=== PATIENT | female | born 1935 | race Caucasian/White ===

== ENCOUNTER → 2017-02-02 | Outpatient (CLI) | payer MEDICARE, OTHER ==
[~2017-02-02] MED LIST: AMLO2.5T PO; ATEN25TA PO; IOHEXOL 240 MG/ML 50ML VIAL. PO ONE; IOHEXOL 300 MG/ML 100ML VIAL. IV ONE; LEVO25TA4 PO; OMEP20TA63 PO
--- NOTE | 2017-02-02 12:17 | KCIC ---
PROCEDURE CT of the abdomen and pelvis with contrast HISTORY Generalized abdominal pain. History of aneurysm. History of diverticulitis. TECHNIQUE Standard imaging after intravenous and oral contrast. COMPARISON FINDINGS Mild linear markings in the anterior right lung base compatible with scarring or mild atelectasis. Liver unremarkable. Spleen unremarkable. Pancreas unremarkable. No evidence of adrenal mass. Low-density lesion at the upper pole the left kidney measures water density, compatible with a cyst. There is a right extrarenal pelvis and a smaller left extrarenal pelvis. Gallbladder not visualized. Aorta is mildly calcified and tortuous without evidence of aneurysmal dilatation. No significant lymph node enlargement. Large hiatal hernia. This is partially visualized. No evidence of bowel obstruction. There is colonic diverticulosis without evidence of pericolonic inflammatory type changes. Unopacified urinary bladder is grossly unremarkable Uterine calcifications, likely due to fibroids. No evidence of ascites. Degenerative spondylosis of the visualized spine. There is at least mild spinal and neural foraminal stenosis at the lower lumbosacral levels. Arterial vascular calcifications are seen. There is a more focal ring-like calcification at the left splenic artery may represent a small calcified aneurysm, measuring 12 millimeters. IMPRESSION 1. Large hiatal hernia. 2. Left renal cyst. 3. 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 Electronically signed by: William Urban MD (Feb 02, 2017 12:15:48)
--- NOTE | 2017-02-02 12:22 | KCIC ---
PROCEDURE Bone density. HISTORY Osteoarthritis, osteoporosis, postmenopausal female. COMPARISON None. FINDINGS Dual photon densitometry of the lumbar spine and left proximal femur is performed. Bone mineral density values are measured in grams per cm2. Lumbar spine, L1-L4, total bone mineral density 1.142, T-score 0.9, Z-score 3.5. Left total femur bone mineral density 0.676, T-score -2.2, Z-score -0.2. World Health Organization criteria for bone mineral density interpretation classify patient's as normal (T-score at or above -1.0), osteopenic (T-score between -1 and -2.5), or osteoporotic (T-score at or below -2.5). IMPRESSION Normal bone mineral density of the lumbar spine and osteopenia of the left femur. Electronically signed by: Andrea Burk MD (Feb 02, 2017 12:20:56)
== END | disposition home or self-care (01) ==
LOC: KCIC CT 10:24
PROVIDERS: ATTEND Internal Medicine Cardiovascular Disease
DX: K44.9 Diaphragmatic hernia without obstruction or gangrene (principal); N28.1 Cyst of kidney, acquired; Z78.0 Asymptomatic menopausal state; M19.90 Unspecified osteoarthritis, unspecified site; M85.88 Other specified disorders of bone density and structure, other site; M81.0 Age-related osteoporosis without current pathological fracture
CPT/HCPCS: 74177; 77080; 82565; Q9966; Q9967

== ENCOUNTER 2017-10-23 15:20 | Emergency (ER) | payer MEDICARE, OTHER ==
[2017-10-23 16:53] LABS: BILIRUBIN,URINE NEGATIVE (NEG); CLARITY,URINE CLEAR; COLOR,URINE YELLOW; GLUCOSE,URINE NEGATIVE (NEG); NITRITE,URINE NEGATIVE (NEG); PROTEIN,URINE NEGATIVE (NEG-TRACE); UROBILINOGEN,URINE 0.2 mg/dL (0.2 mg/dL)
[2017-10-23 16:59] LABS: ADD MAN DIFF? NO
[2017-10-23 17:03] LABS: BASO # 0.1 x10^3/uL (0.0-0.2); BASO % 1 % (0-3); EOS % 0 % (0-3); HEMATOCRIT 42.1 % (36.0-47.0); HEMOGLOBIN 13.9 g/dL (12.0-15.5); LYMPH # 1.1 x10^3/uL (1.0-4.8); LYMPH % 12 % (24-48); MEAN CORPUSCULAR HEMOGLOBIN 31 pg (25-35); MEAN CORPUSCULAR HGB CONC 33 g/dL (31-37); MEAN CORPUSCULAR VOLUME 94 fL (79-100); MONO # 0.3 x10^3/uL (0.0-1.1); MONO % 3 % (0-9); NEUT # 7.9 x10^3uL (1.8-7.7); NEUT % 84 % (31-73); PLATELET COUNT 277 x10^3/uL (140-400); RED BLOOD COUNT 4.47 x10^6/uL (3.50-5.40); RED CELL DISTRIBUTION WIDTH 13.1 % (11.5-14.5); WHITE BLOOD COUNT 9.4 x10^3/uL (4.0-11.0)
[2017-10-23 17:12] LABS: BACTERIA,URINE 0 /HPF (0-FEW); RBC,URINE 0 /HPF (0-2); SQUAMOUS EPITHELIAL CELL,UR OCC /LPF; WBC,URINE 0 /HPF (0-4)
[2017-10-23 17:33] LABS: ANION GAP 12 (6-14); BLOOD UREA NITROGEN 16 mg/dL (7-20); BUN/CREATININE RATIO 16 (6-20); CALCIUM 9.4 mg/dL (8.5-10.1); CARBON DIOXIDE 28 mmol/L (21-32); CHLORIDE 104 mmol/L (98-107); GFR 53.3; GLUCOSE 125 mg/dL (70-99); POTASSIUM 3.5 mmol/L (3.5-5.1); SODIUM 144 mmol/L (136-145)
[2017-10-23 17:39] LABS: ALBUMIN 3.8 g/dL (3.4-5.0); ALK PHOS 63 U/L (46-116); ALT (SGPT) 17 U/L (14-59); AST (SGOT) 17 U/L (15-37); TOTAL BILIRUBIN 0.6 mg/dL (0.2-1.0); TOTAL PROTEIN 7.7 g/dL (6.4-8.2)
[2017-10-23 17:42] LABS: TROPONINI < 0.017 ng/mL (0.000-0.055)
== END 2017-10-23 18:05 | disposition home or self-care (01) ==
LOC: ER 15:20
DX: I10 Essential (primary) hypertension (principal); R51 Headache; E03.9 Hypothyroidism, unspecified
CPT/HCPCS: 36415; 70450; 71045; 80053; 81001; 84484; 85025; 93005; 99285-25

== ENCOUNTER → 2017-11-13 | Outpatient (CLI) | payer MEDICARE, OTHER | END | disposition home or self-care (01) | LOC: KCIC 10:52 | DX: M19.022 Primary osteoarthritis, left elbow (principal) | CPT/HCPCS: 73060; 73080 ==

== ENCOUNTER → 2017-11-23 | Outpatient (CLI) | payer MEDICARE, OTHER | END | disposition home or self-care (01) | LOC: KCIC US 09:48 | DX: I10 Essential (primary) hypertension (principal); I70.1 Atherosclerosis of renal artery | CPT/HCPCS: 93975 ==

== ENCOUNTER → 2017-12-15 | Outpatient (CLI) | payer MEDICARE, OTHER ==
[2017-12-15 13:27] LABS: BILIRUBIN,URINE NEGATIVE (NEG); CLARITY,URINE CLOUDY; COLOR,URINE YELLOW; GLUCOSE,URINE NEGATIVE (NEG); NITRITE,URINE NEGATIVE (NEG); PROTEIN,URINE NEGATIVE (NEG-TRACE); UROBILINOGEN,URINE 0.2 mg/dL (0.2 mg/dL)
[2017-12-15 13:46] LABS: BACTERIA,URINE 0 /HPF (0-FEW); RBC,URINE 0 /HPF (0-2); WBC,URINE TNTC /HPF (0-4)
[2017-12-15 13:49] LABS: ANION GAP 9 (6-14); BLOOD UREA NITROGEN 19 mg/dL (7-20); CALCIUM 10.1 mg/dL (8.5-10.1); CARBON DIOXIDE 28 mmol/L (21-32); CHLORIDE 101 mmol/L (98-107); CREATININE 1.1 mg/dL (0.6-1.0); GFR 47.8; GLUCOSE 120 mg/dL (70-99); POTASSIUM 3.9 mmol/L (3.5-5.1); SODIUM 138 mmol/L (136-145)
[2017-12-15 15:01] LABS: SEDIMENTATION RATE 20 (0-25)
== END | disposition home or self-care (01) ==
LOC: LAB 12:57
DX: I10 Essential (primary) hypertension (principal); I51.89 Other ill-defined heart diseases; N39.0 Urinary tract infection, site not specified
CPT/HCPCS: 36415; 80048; 81001; 85651; 86141; 87086; 87186

== ENCOUNTER → 2018-01-20 | Outpatient (CLI) | payer MEDICARE, OTHER | END | disposition home or self-care (01) | LOC: KCIC 14:37 | DX: M47.892 Other spondylosis, cervical region (principal); M48.02 Spinal stenosis, cervical region; Z91.81 History of falling | CPT/HCPCS: 72040 ==

== ENCOUNTER → 2018-02-10 | Outpatient (CLI) | payer MEDICARE, OTHER | END | disposition home or self-care (01) | LOC: KCIC MRI 11:28 | DX: M48.02 Spinal stenosis, cervical region (principal); N28.1 Cyst of kidney, acquired; N28.89 Other specified disorders of kidney and ureter | CPT/HCPCS: 72141; 72146; 76770 ==

== ENCOUNTER → 2018-07-21 | Outpatient (CLI) | payer MEDICARE, OTHER ==
[2017-10-23 17:58] VITALS: BP 164/77
[~2018-07-21] MED LIST changes: -AMLO2.5T PO; +AMLO2.5T3 PO; -IOHEXOL 240 MG/ML 50ML VIAL. PO ONE; -IOHEXOL 300 MG/ML 100ML VIAL. IV ONE
--- NOTE | 2018-07-21 11:51 | KCIC ---
EXAM: Abdomen sonogram. HISTORY: Pain. TECHNIQUE: Sonographic imaging of the abdomen was performed. COMPARISON: CT dated 02/02/2017. FINDINGS: The liver is normal in size. No focal hepatic lesion is seen. The common bile duct is normal in caliber. The gallbladder is surgically absent. The kidneys are normal in size. There is a 2.6 cm left renal cyst. The pancreas is obscured due to bowel gas. The spleen is normal in size. The aorta and inferior vena cava are obscured due to bowel gas. IMPRESSION: 1. Cholecystectomy. 2. 2.6 cm left renal cyst. 3. Obscured midline structures due to bowel gas. Electronically signed by: Jesenia Rothman MD (07/21/2018 11:47 AM) [id number]
== END | disposition home or self-care (01) ==
LOC: KCIC US 09:47
PROVIDERS: ATTEND Internal Medicine Cardiovascular Disease
DX: N28.1 Cyst of kidney, acquired (principal); Z90.49 Acquired absence of other specified parts of digestive tract
CPT/HCPCS: 76700

== ENCOUNTER → 2020-07-04 | Outpatient (CLI) | payer MEDICARE, OTHER ==
[2017-10-23 17:58] VITALS: BP 164/77
[~2020-07-04] MED LIST changes: -AMLO2.5T3 PO; +AMLO2.5T5 PO
--- NOTE | 2020-07-04 13:18 | KCIC ---
EXAM: AP, oblique and lateral views of both knees DATE: 07/04/2020 12:00 AM INDICATION: Reason: BILATERAL KNEE PAIN / Spl. Instructions: / History: COMPARISON: No Prior FINDINGS: Right knee: Severe lateral compartment joint space narrowing with tricompartmental osteophytes and mild valgus angulation. Small right knee joint effusion. Atherosclerotic vascular calcifications are seen. No evidence of acute fracture or dislocation. Left knee: Mild lateral compartment joint space narrowing with tricompartmental osteophytes, small left knee joint effusion. Atherosclerotic vascular calcifications are seen. No acute fracture or dislocation. Suspect small joint bodies. IMPRESSION: 1. Moderate to severe bilateral knee joint osteoarthritis. 2. Small bilateral knee joint effusions. Small joint bodies left knee. 3. Atherosclerotic vascular calcifications are seen. Electronically signed by: Josh Hurd MD (07/04/2020 1:15 PM) DANYELL
--- NOTE | 2020-07-04 15:13 | KCIC ---
Bone mineral density exam History: Takes thyroid medication, diabetes Comparison: 02/02/2017 Findings: Bone mineral density examination utilizing DEXA was performed. Left hip bone mineral density of 0.638 g/cm2 corresponds with a T score -2.5, Z score -0.3. There has been -5.6% decrease. The bone mineral density of the lumbar spine was 1.125 g/cm2 which corresponds with a T-score of 0.7, Z score 3.5. There has been -1.5% decrease. By World Congress on Osteoporosis criteria, a T score of 0 to-1 SD is considered to be within normal limits. A T score of -1 to -2.5 SD is considered osteopenia. A T score less than -2.5 SD is considered osteoporosis Impression: 1. There is osteoporosis of the left hip. 2. Bone mineral density of the lumbar spine is within normal limits although may be artificially elevated due to the presence of scoliosis and degenerative change. Electronically signed by: Delon Mray MD (07/04/2020 3:10 PM) [id number]
== END | disposition home or self-care (01) ==
LOC: KCIC DEXA 09:35
PROVIDERS: ATTEND Internal Medicine Cardiovascular Disease
DX: M17.0 Bilateral primary osteoarthritis of knee (principal); M25.762 Osteophyte, left knee; M25.761 Osteophyte, right knee; M25.462 Effusion, left knee; M25.461 Effusion, right knee; Z78.0 Asymptomatic menopausal state; M81.0 Age-related osteoporosis without current pathological fracture
CPT/HCPCS: 73562; 77080

== ENCOUNTER → 2020-07-13 | Outpatient (CLI) | payer MEDICARE, OTHER ==
[2017-10-23 17:58] VITALS: BP 164/77
[~2020-07-13] MED LIST changes: +ACET500T68 PO; +AMLO5TAB10 PO; +CALC500T30 PO; +IBUP100O25 PO; +LEVO50TA5 PO; +LOSA-73 PO; +METO25TA4 PO; +PIOG15TA42 PO; +Vitamin d3
--- NOTE | 2020-07-13 12:33 | KCIC ---
EXAMINATION: MRI LEFT HIP WITHOUT IV CONTRAST CLINICAL HISTORY: Severe left hip pain. Severe osteoarthritis on recent bone density study, per pt. TECHNIQUE: Multiplanar multisequential images obtained through the hip without intravenous contrast. COMPARISON: None FINDINGS: Left Hip: Labral degeneration without definite tear. Mild reactive/cystic changes in the superior acetabulum compatible with overlying full-thickness chondral loss/fissuring. No acute fracture. No avascular necrosis. No joint effusion. No synovitis. Right Hip: No acute fracture. No avascular necrosis. Large field of view images limits evaluation of labrum and cartilage. Sacroiliac Joints: Within normal limits. Pubic Symphysis: Within normal limits. Tendons: Mild tendinosis left hamstrings origin. Tendons otherwise within normal limits including the iliopsoas, gluteal and rectus femoris tendons. Muscles: Within normal limits. Bone Marrow: No acute fracture or suspicious marrow replacing process. Other: Mild fluid distention of the left subgluteal bursa. Similar findings suspected on the right as well, but suboptimally evaluated on single large [id number] sequence. IMPRESSION: Mild degenerative changes left hip. Mild left subgluteal bursitis. Mild left hamstrings origin tendinosis. Electronically signed by: Dipesh West DO (07/13/2020 12:30 PM) [id number]
--- NOTE | 2020-07-13 12:52 | KCIC ---
EXAMINATION: MRI RIGHT KNEE WITHOUT IV CONTRAST CLINICAL HISTORY: Chronic bilateral knee pain. History: Right knee pain for at least a yr. Pain around patella. Swelling. TECHNIQUE: Multiplanar multisequential images obtained through the knee without intravenous contrast. COMPARISON: Bilateral knee radiographs 07/04/2020 FINDINGS: MENISCI: Medial Meniscus: Fraying of the meniscal free which in the posterior horn and body with no discrete tear definitively visualized Lateral Meniscus: Complex tear in the anterior horn, body and posterior horn with minimal to no residual meniscal tissue definitively visualized LIGAMENTS: ACL: Intact PCL: Intact MCL: Intact LCL Complex: Intact CARTILAGE: Medial Femoral Condyle: Moderate sized area(s) of predominantly low grade (less than 50% thickness) cartilage loss and or fissuring with smaller area(s) of full thickness cartilage loss and or fissuring Medial Tibial Plateau: Small area(s) of low grade (less than 50% thickness) partial thickness cartilage loss and or fissuring Lateral Femoral Condyle: Large area(s) of full thickness cartilage loss/fissuring with subchondral marrow reactive/cystic changes Lateral Tibial Plateau: Large area(s) of full thickness cartilage loss/fissuring with subchondral marrow reactive/cystic changes Patella: Small area(s) of full thickness cartilage loss and or fissuring with subchondral marrow reactive/cystic changes Trochlea: Small area(s) of full thickness cartilage loss and or fissuring with subchondral marrow reactive/cystic changes TENDONS: The distal quadriceps and patellar tendons are intact. The popliteus tendon is intact. BONES AND MARROW: No evidence of acute fracture or suspicious marrow replacing process. Bulky tricompartmental marginal osteophytes MUSCLES: Muscle bulk and signal intensity within normal limits. JOINT FLUID AND SYNOVIUM: Moderate joint effusion. No synovitis. Tiny Cardoso's cyst. IMPRESSION: Tricompartmental degenerative changes as described, advanced in the lateral compartment with large lateral meniscus tear. Electronically signed by: Dipesh West DO (07/13/2020 12:49 PM) [id number]
--- NOTE | 2020-07-13 13:08 | KCIC ---
EXAMINATION: MRI LEFT KNEE WITHOUT IV CONTRAST CLINICAL HISTORY: Chronic bilateral knee pain. History: Left knee pain, progressing osteoarthritis. TECHNIQUE: Multiplanar multisequential images obtained through the knee without intravenous contrast. COMPARISON: Bilateral knee radiographs 07/04/2020 FINDINGS: MENISCI: Medial Meniscus: Fraying of the meniscal free edge in the posterior horn with no discrete tear definitively visualized Lateral Meniscus: Findings suggestive of partial meniscectomy with nonvisualization of the anterior horn and anterior body LIGAMENTS: ACL: Intact PCL: Intact MCL: Intact LCL Complex: Intact CARTILAGE: Medial Femoral Condyle: Large area(s) of full thickness cartilage loss/fissuring with subchondral marrow reactive/cystic changes Medial Tibial Plateau: Small area(s) of low grade (less than 50% thickness) partial thickness cartilage loss and or fissuring Lateral Femoral Condyle: Small area(s) of full thickness cartilage loss and or fissuring Lateral Tibial Plateau: Large area(s) of predominantly high grade (greater than 50% thickness) cartilage loss and or fissuring with smaller area(s) of full thickness cartilage loss and or fissuring with subchondral marrow reactive/cystic changes Patella: Large area(s) of full thickness cartilage loss/fissuring with subchondral marrow reactive/cystic changes Trochlea: Moderate sized area(s) of predominantly high grade (greater than 50% thickness) cartilage loss and or fissuring with smaller area(s) of full thickness cartilage loss and or fissuring with subchondral marrow reactive/cystic changes TENDONS: The distal quadriceps and patellar tendons are intact. The popliteus tendon is intact. BONES AND MARROW: No evidence of acute fracture or suspicious marrow replacing process. MUSCLES: Muscle bulk and signal intensity within normal limits. JOINT FLUID AND SYNOVIUM: Small joint effusion. No synovitis. No Cardoso's cyst. OTHER: 2 subcentimeter hypointense foci in the superficial soft tissues along the medial aspect of the knee corresponding to the small infrapatellar ossicles on comparison radiographs. IMPRESSION: Moderate to severe tricompartmental degenerative changes as described. Findings suggestive of partial lateral meniscectomy. Electronically signed by: Dipesh West DO (07/13/2020 1:05 PM) [id number]
== END | disposition home or self-care (01) ==
LOC: KCIC MRI 08:13
PROVIDERS: ATTEND Internal Medicine Cardiovascular Disease
DX: M17.0 Bilateral primary osteoarthritis of knee (principal); G89.29 Other chronic pain; M76.892 Other specified enthesopathies of left lower limb, excluding foot
CPT/HCPCS: 73721

== ENCOUNTER → 2020-07-17 | Outpatient (CLI) | payer MEDICARE, OTHER ==
[2017-10-23 17:58] VITALS: BP 164/77
[~2020-07-17] MED LIST changes: +BUPIVACAINE MPF 0.25% 10 ML VIAL. ONE; +IOHEXOL 180 MG/ML 10 ML VIAL. ONE; +methylPREDNISolone ACETATE 40 MG/ML VIAL. ONE; +methylPREDNISolone ACETATE 80 MG/ML VIAL. ONE
--- NOTE | 2020-07-17 12:47 | PDOC1 ---
INITIAL PAIN CONSULT DATE OF SERVICE: DOS: DATE: 07/17/20 TIME: 12:38 CHIEF COMPLAINT: Chief Complaint: Bilateral knee joint pain HISTORY OF PRESENT ILLNESS: 84-year-old female presents history of pain bilateral knees for many years worse over the past 6 to 8 months patient reports worse with walking standing weightbearing changing positions putting all of her weight on one leg such as climbing a stair or a step although patient reports he does pretty well on flat floor she is using a walker to ambulate has it with her today. Patient reports the pain is worse with weightbearing on one leg or the other exclusively somewhat worse on the left side patient tried ibuprofen as well as Tylenol both of which do decrease the pain to a mild extent but not for very long lasting patient reports it wakes her from sleep about twice a night but generally is better with sitting or laying down patient reports does not affect her bowel bladder control does affect her ability walk fairly significantly patient has been physical therapy in the past but nothing recently regarding the knees. Rates her disability rating 0-10 10 being the worse, as a 7 with family home responsibilities recreation social activity and sexual behavior 0 with self-care and 0 with life support activities patient reports no loss of motor function but significant fatigability especially with the left leg when the knee is most painful. PAST MEDICAL HISTORY: PMH: Hearing loss, diabetes type 2, hypothyroidism, hypertension, tachycardia, hiatal hernia, arthritis, anxiety PREVIOUS SURGERIES: Past Surgical Hx: Cholecystectomy, appendectomy, right breast benign tumor excision, bilateral cataract extractions CURRENT MEDICATIONS: Current Meds: Active Scripts Medications Dose Route/Sig Max Daily Dose Days Date Category Ibuprofen 100 Mg/5 Ml Oral.susp 200 Mg PO BID 07/17/20 Reported Acetaminophen 500 Mg Tablet 500 Mg PO DAILY 07/17/20 Reported Actos (Pioglitazone Hcl) 15 Mg Tablet 10 Mg PO DAILY 07/17/20 Reported [Vitamin d3] 3,000 Mg 07/17/20 Reported Calcium (Calcium Carbonate) 500 Mg Tablet 500 Mg PO DAILY 07/17/20 Reported Losartan Potassium 50 Mg Tablet 25 Mg PO DAILY 07/17/20 Reported Metoprolol Tartrate 25 Mg Tablet 25 Mg PO TID 07/17/20 Reported Levothyroxine Sodium 50 Mcg Tablet 1 Tab PO DAILY 07/17/20 Reported Amlodipine Besylate 5 Mg Tablet 5 Mg PO DAILY 07/17/20 Reported Prilosec Otc (Omeprazole Magnesium) 20 Mg Tablet.dr 1 Tab PO DAILY 02/02/17 Reported ALLERGIES; Allergies: Coded Allergies: No Known Drug Allergies (Unverified , 02/02/17) FAMILY HISTORY: Family Hx: Heart disease SOCIAL HISTORY: Social Hx: Patient does not drink alcohol does not smoke not use any illegal illicit or recreational drugs is lives with her spouse lives locally in [facility] and is currently retired. REVIEW OF SYSTEMS: ROS: Positive for those items mentioned in history of present illness, all systems are reviewed, otherwise negative, is complete full and well-documented on patient's chart PHYSICAL EXAM: VS: Blood pressure 147/79 pulse 78 respirations 20 temperature 97.6 3 Fahrenheit height is 5 foot 4 inches weight is 141 pounds PE: PHYSICAL EXAMINATION: GENERAL: The patient is awake, alert, oriented, appropriate, very pleasant demeanor, patient accompanied by her daughter. HEENT: Shows normocephalic, atraumatic. Extraocular movements are intact and symmetrical. Oral cavity: Mucous membranes moist and pink. NECK: Shows anterior throat supple without palpable lymphadenopathy noted. Swallow reflex symmetrical. CHEST: Shows normal on inspection. Breath sounds are clear bilaterally, no rales rhonchi or wheezes auscultated. HEART: Shows S1, S2 clear. No murmurs auscultated. ABDOMEN: Soft, nontender, nondistended, obese. No palpable organomegaly is noted. No rebound or guarding demonstrated. BACK: Shows spine grossly in the midline. Normal-appearing cervical lordotic curvature. There is slightly increased thoracic kyphosis, with some slight leftward scoliosis in the inferior aspect of the thoracic spine, some minor flattening of the lumbar lordotic curvature. Lumbar paraspinous muscles show symmetrical on inspection, on palpation shows some moderate tenderness diffusely throughout the upper, middle and lower distribution of the paraspinous muscles bilaterally and also into the lower thoracic paraspinous musculature, firm and tender, without specific trigger points, without radiation of pain. The patient has good rotational motion of the lumbar spine, both laterally as well as extension and flexion without significant difficulty. No tenderness over the spinous processes, sacrum or sacroiliac regions. EXTREMITIES: Lower extremities show deep tendon reflexes 1+ in the patellar and tendo calcaneus tendons. Motor exam is 5 on a scale of 5 with right dorsiflexion, extension, quadriceps and hamstring flexion and 5/5 on the left. Peripheral pulses are 1+ posterior tibial. No peripheral edema is noted bilaterally. Lower extremities are warm and dry to touch, equal in color and appearance. Gaenslen's and Aroldo's maneuvers are negative bilaterally as well. The patient is able to stand, stand on her toes but loses balance fairly quickly is walking with a slight shuffling gait. Favor the right left lower extremity significantly but is using a walker to ambulate. SKIN: Shows warm and dry, good turgor. No edema. No sores, rashes or bruising throughout. IMPRESSION: Impression: 84-year-old female with long history of bilateral knee pain worse over the past few months with osteoarthritis MRI scans bilateral knees as noted Hypertension Arthritis Type 2 diabetes Plan: Options were discussed with patient including conservative medical management is continued physical therapies interventional techniques. She like to pursue interventional techniques, we discussed a bilateral intra-articular knee joint injection using description as well as anatomical models to describe the procedure. Risks were then discussed including but not limited to bleeding infection possibility of intravascular injection sequelae spread of local anesthetic and numbness side effects of steroid medication and portal scarring pain control. Patient understands wished to proceed patient return to clinic in approximately 1 month or as necessary. Under sterile prep and drape using C-arm fluoroscopic guidance bilateral knees were prepped in usual fashion using x-ray fluoroscopic guidance intra-articular knee joint space was identified local anesthetic was used to anesthetize the area over the knee joint bilaterally using a 22-gauge Quincke needle with stylette, the joint was entered under direct fluoroscopic vision without difficulty. Stylet was removed 1.5 cc of Omnipaque contrast was then injected in each knee for a total of 3 cc, 120 mg total of Depo-Medrol 60 mg for each knee, and 60 cc of 0.25% Vivacaine, 3 cc each knee was injected. Sterile bandages were then applied. Patient tolerated the procedure well had no complications. XIANG SOSA MD Jul 17, 2020 12:47
== END | disposition home or self-care (01) ==
LOC: PNCL 10:52
PROVIDERS: ATTEND Anesthesiology
DX: M17.0 Bilateral primary osteoarthritis of knee (principal); E03.9 Hypothyroidism, unspecified; I10 Essential (primary) hypertension; E11.9 Type 2 diabetes mellitus without complications; F41.9 Anxiety disorder, unspecified; M19.90 Unspecified osteoarthritis, unspecified site; H91.90 Unspecified hearing loss, unspecified ear; Z98.890 Other specified postprocedural states; Z79.899 Other long term (current) drug therapy; Z79.84 Long term (current) use of oral hypoglycemic drugs
CPT/HCPCS: 20610; 77002; J1030; J1040; J3490; Q9965